=== PATIENT | female | born 1990 | race Two or more races ===

== ENCOUNTER 2019-01-10 12:40 | Emergency (ER) | payer MEDICAID ==
[~2019-01-10] VITALS: Ht 165.1 cm; Wt 47.6 kg
[2019-01-10 15:05] VITALS: BP 113/73
[2019-01-10] MEDS ORDERED: diphenhdrAMINE HCL 25 MG CAP PO ONE (15:15)
[2019-01-10] MEDS ORDERED: methylPREDNISolone SOD SUCC 125 MG/2 ML VL IM ONE (15:15)
[2019-01-10] MEDS ORDERED: diphenhdrAMINE HCL 12.5 MG/5 ML UD PO ONE (15:30)
== END 2019-01-10 15:55 | disposition home or self-care (01) ==
LOC: ER 12:47
DX: R21 Rash and other nonspecific skin eruption (principal)
CPT/HCPCS: 96372; 99283; J2930